=== PATIENT | male | born 2000 | race Caucasian/White ===

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

== ENCOUNTER 2020-08-13 16:23 | Emergency (ER) | payer MEDICAID ==
[2020-08-13 16:31] VITALS: BP 104/68
[2020-08-13] MEDS ORDERED: BUFFERED LIDOCAINE 10 ML SYRINGE SUBQ STA (16:44)
--- NOTE | 2020-08-13 16:45 | ED Physician Documentation ---
PD HPI UPPER EXT INJURY - Stated complaint Stated Complaint: LT THUMB LAC - Chief complaint Chief Complaint: Laceration - History obtained from History obtained from: Patient (19-year-old gentleman with up-to-date tetanus status accidentally cut his left thumb which is his nondominant thumb with gardening kajal just prior to arrival.) Review of Systems Constitutional: reports: Reviewed and negative Eyes: reports: Reviewed and negative Ears: reports: Reviewed and negative Nose: reports: Reviewed and negative Throat: reports: Reviewed and negative Cardiac: reports: Reviewed and negative Respiratory: reports: Reviewed and negative PD PAST MEDICAL HISTORY - Past Medical History Past Medical History: No Cardiovascular: None Respiratory: None Endocrine/Autoimmune: None Psych: None Musculoskeletal: None - Past Surgical History Past Surgical History: Yes General: Colonoscopy, EGD - Present Medications Home Medications: Ambulatory Orders Medication Instructions Recorded Confirmed No Known Home Medications 08/13/20 08/13/20 - Allergies Allergies/Adverse Reactions: Allergies Allergy/AdvReac Type Severity Reaction Status Date / Time No Known Drug Allergies Allergy Verified 08/13/20 16:28 - Social History Does the pt smoke?: No Smoking Status: Never smoker Does the pt drink ETOH?: No Does the pt have substance abuse?: No - Immunizations Immunizations are current?: Yes - POLST Patient has POLST: No PD ED PE NORMAL - Vitals Vital signs reviewed: Yes - General General: Alert and oriented X 3, No acute distress - Extremities Extremities: Other (On the palmar surface of the left thumb just distal to the MCP there is a 1.5 cm shallow laceration just into subcutaneous fat without distal neurovascular compromise or evidence of tendon injury.) - Neuro Neuro: Alert and oriented X 3, Normal speech Results - Vitals Vitals: Vital Signs - 24 hr 08/13/20 16:29 Temperature 36.8 C Heart Rate 60 Respiratory 16 Rate Blood Pressure 104/68 O2 Saturation 100 Oxygen O2 Source Room air Procedures - Laceration (location) L thumb Length in cm: 1.5 Wound type: Linear, Into subcut fat Neurovascular status: Sensory intact, Motor intact, Vascular intact Anesthesia: Lidocaine 1%, With bicarb Wound preparation: Hibiclens, Irrigated copiously NS Skin layer closure: Nylon, Interrupted, Size #-0 - enter number (4-0), Sutures - enter # (3) Other: Patient tolerated well, No complications, Neurovascular intact, Tetanus UTD Departure - Departure Disposition: 01 Home, Self Care Clinical Impression: Laceration Condition: Good Record reviewed to determine appropriate education?: Yes Instructions: ED Laceration Hand Comments: Come back for any signs of infection which would include: Redness, swelling, drainage, increased pain, or fevers. You can wash it soap and water. Keep it covered and moist with bacitracin ointment which is available over the counter; avoid neosporin. Follow-up with your physician in 10-14 days for suture removal.
== END 2020-08-13 17:02 | disposition home or self-care (01) ==
LOC: ED 16:23
DX: S61.012A Laceration without foreign body of left thumb without damage to nail, initial encounter (principal); W27.1XXA Contact with garden tool, initial encounter; Y93.H2 Activity, gardening and landscaping
CPT/HCPCS: 12001; 99281; 99282

== ENCOUNTER 2022-05-16 10:26 | Emergency (ER) | payer MEDICAID ==
[2022-05-16 10:35] VITALS: BP 121/69
--- NOTE | 2022-05-16 11:21 | XRAY Report ---
PROCEDURE: Wrist 4 View RT INDICATIONS: Trauma TECHNIQUE: 4 views of the wrist were acquired. COMPARISON: None. FINDINGS: Bones: No fractures or dislocations. No suspicious bony lesions. Scaphoid view: Intact scaphoid. Soft tissues: No suspicious soft tissue calcifications. IMPRESSION: No acute finding. Reviewed by: Geovanny Hernández MD on 05/16/2022 11:20 AM [facility] Approved by: Geovanny Hernández MD on 05/16/2022 11:20 AM [facility] Station ID: [id number]
--- NOTE | 2022-05-16 12:49 | ED Physician Documentation ---
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 Pain is near the distal radius and worse with any range of motion. He is never had this before. Review of Systems Constitutional: reports: Reviewed and negative Cardiac: reports: Reviewed and negative Respiratory: reports: Reviewed and negative PD PAST MEDICAL HISTORY - Past Medical History Past Medical History: No Cardiovascular: None Respiratory: None Endocrine/Autoimmune: None Psych: None Musculoskeletal: None - Past Surgical History Past Surgical History: Yes General: Colonoscopy, EGD - Present Medications Home Medications: Ambulatory Orders Medication Instructions Recorded Confirmed Ibuprofen [Motrin] 600 mg PO Q6H PRN #30 tab 05/16/22 - Allergies Allergies/Adverse Reactions: Allergies Allergy/AdvReac Type Severity Reaction Status Date / Time No Known Drug Allergies Allergy Verified 05/16/22 10:35 - Social History Does the pt smoke?: No Smoking Status: Never smoker Does the pt drink ETOH?: No Does the pt have substance abuse?: Yes Substance Use and Type: Marijuana, CBD oil / Products - Immunizations Immunizations are current?: Yes - POLST Patient has POLST: No PD ED PE NORMAL - Vitals Vital signs reviewed: Yes - General General: Alert and oriented X 3, No acute distress - Extremities Extremities: Other (Mild tenderness of the distal radius kind of laterally with some swelling there. Flexion and extension as well as forced inversion of the wrist is painful. No tenderness over the scaphoid. No elbow tenderness.) - Neuro Neuro: Alert and oriented X 3, Normal speech Results - Vitals Vitals: Vital Signs - 24 hr 05/16/22 10:33 Temperature 36.0 C L Heart Rate 63 Respiratory 16 Rate Blood Pressure 121/69 O2 Saturation 100 Oxygen O2 Source Room air - Rads (name of study) 4 view x-ray of the right wrist is unremarkable. Radiology: Final report received, EMP read indepedently PD Medical Decision Making - ED course ED course: 21-year-old right-handed gentleman presents with a tendinitis of the right wrist and is placed in a Velcro thumb spica splint and advised on relative rest and NSAIDs as well as follow-up. Departure - Departure Disposition: 01 Home, Self Care Clinical Impression: Right wrist tendonitis Condition: Good Record reviewed to determine appropriate education?: Yes Instructions: ED Sprain Wrist Prescriptions: Ibuprofen [Motrin] 600 mg PO Q6H PRN #30 tab PRN Reason: Pain Comments: Wear the splint when active. You do not need to wear it at rest or while showering bathing etc. Follow-up with your doctor in a week. Return for new or worsening symptoms. Forms: Activity restrictions
== END 2022-05-16 12:52 | disposition home or self-care (01) ==
LOC: ED 10:26
DX: M77.8 Other enthesopathies, not elsewhere classified (principal)
CPT/HCPCS: 99282; 99283

== ENCOUNTER 2022-09-29 14:58 | Emergency (ER) | payer MEDICAID ==
--- OUTSIDE RECORDS SUMMARY | 2022-09-29 15:41 | EXTERNAL MEDICAL SUMMARY RPT | Continuity of Care Document ---
Author Name Unknown Address [address] [place] [id number] Phone Organization [facility] Address [address] [place] [phone] Phone Results/Labs test date author facility value unit interpretation Result panel 1 (unknown) (no date) (unknown) (unknown) (no value) (units unknown) (unknown) (unknown) (no date) (unknown) (unknown) <Electronicall y signed by Syed Zelaya MD> (units unknown) (unknown) (unknown) (no date) (unknown) (unknown) [id number] (units unknown) (unknown) (unknown) (no date) (unknown) (unknown) 06/25/22 (units unknown) (unknown) (unknown) (no date) (unknown) (unknown) 07/07/22 0154 (units unknown) (unknown) (unknown) (no date) (unknown) (unknown) 100 mg PO BID Qty: 20 0RF (units unknown) (unknown) (unknown) (no date) (unknown) (unknown) 10:13 (units unknown) (unknown) (unknown) (no date) (unknown) (unknown) Able to expres s small amount of pus and sent for culture. Patient does agree (units unknown) (unknown) (unknown) (no date) (unknown) (unknown) Abscess I/D (units unknown) (unknown) (unknown) (no date) (unknown) (unknown) Abscess of ski n or subcutaneous tissue (units unknown) (unknown) (unknown) (no date) (unknown) (unknown) Activity Restrictions/Addit ional Instructions: (units unknown) (unknown) (unknown) (no date) (unknown) (unknown) Age/Sex: 21 / M (uni ts unknown) (unknown) (unknown) (no date) (unknown) (unknown) Allergies (units unknown) (unknown) (unknown) (no date) (unknown) (unknown) Allergy/AdvRea c Type Severity Reaction Status Date / Time (units unknown) (unknown) (unknown) (no date) (unknown) (unknown) Amount of anesthesia used (mL): 2 (units unknown) (unknown) (unknown) (no date) (unknown) (unknown) Amount of flui d expressed (mL): 0.5 (units unknown) (unknown) (unknown) (no date) (unknown) (unknown) Bacitracin (Bacitracin Oint 0.9 Gm Pckt) 1 applic TOP NOW ONE (units unknown) (unknown) (unknown) (no date) (unknown) (unknown) Blood Pressure 123/70 06/25/22 10:13 (units unknown) (unknown) (unknown) (no date) (unknown) (unknown) Blood Pressure 123/70 (units unknown) (unknown) (unknown) (no date) (unknown) (unknown) CARDIOVASCULAR : negative chest pain, palpitations (units unknown) (unknown) (unknown) (no date) (unknown) (unknown) CC: Left finge r swelling and drainage (units unknown) (unknown) (unknown) (no date) (unknown) (unknown) Chief complain t: Skin/Abscess/Forei gn Body (units unknown) (unknown) (unknown) (no date) (unknown) (unknown) Clinical Impression: (units unknown) (unknown) (unknown) (no date) (unknown) (unknown) Complicating co-morbidities: None (units unknown) (unknown) (unknown) (no date) (unknown) (unknown) Complications: other (None) (units unknown) (unknown) (unknown) (no date) (unknown) (unknown) Course (units unknown) (unknown) (unknown) (no date) (unknown) (unknown) : 1 Acct:[id number] (units unknown) (unknown) (unknown) (no date) (unknown) (unknown) Data collected from: Patient (units unknown) (unknown) (unknown) (no date) (unknown) (unknown) Date of Servic e: 06/25/22 (units unknown) (unknown) (unknown) (no date) (unknown) (unknown) Departure (units unknown) (unknown) (unknown) (no date) (unknown) (unknown) Diagnosis: Fin bushra abscess (units unknown) (unknown) (unknown) (no date) (unknown) (unknown) Differential considered: Includes but not limited to abscess/tenosynovi tis (units unknown) (unknown) (unknown) (no date) (unknown) (unknown) Discharge Plan (unit s unknown) (unknown) (unknown) (no date) (unknown) (unknown) Discontinued Medications (units unknown) (unknown) (unknown) (no date) (unknown) (unknown) Discussion: Appropriate for discharge home. Exam is reassuring. Wound culture (units unknown) (unknown) (unknown) (no date) (unknown) (unknown) Documented By: RLS ( units unknown) (unknown) (unknown) (no date) (unknown) (unknown) ER Physician: Syed Zelaya MD (units unknown) (unknown) (unknown) (no date) (unknown) (unknown) EXTREMITIES: N o gross deformities. Examination left middle finger. Able to (units unknown) (unknown) (unknown) (no date) (unknown) (unknown) Emergency Report (un its unknown) (unknown) (unknown) (no date) (unknown) (unknown) Exam Narrative: (uni ts unknown) (unknown) (unknown) (no date) (unknown) (unknown) Exam documente d above, pertinent findings include: Drainage from wound (units unknown) (unknown) (unknown) (no date) (unknown) (unknown) Exam (units unknown) (unknown) (unknown) (no date) (unknown) (unknown) GASTROINTESTIN AL: negative nausea, vomiting, abdominal pain (units unknown) (unknown) (unknown) (no date) (unknown) (unknown) GENERAL: in no distress, not toxic not dyspneic (units unknown) (unknown) (unknown) (no date) (unknown) (unknown) GENERAL: negat aleks chills, fatigue, malaise, fever, sweats. (units unknown) (unknown) (unknown) (no date) (unknown) (unknown) : negative dysuria, frequency, hematuria (units unknown) (unknown) (unknown) (no date) (unknown) (unknown) General (units unknown) (unknown) (unknown) (no date) (unknown) (unknown) HEAD: Normocephalic. (units unknown) (unknown) (unknown) (no date) (unknown) (unknown) HEENT: negativ e sinus pain, ear pain, sore throat (units unknown) (unknown) (unknown) (no date) (unknown) (unknown) HPI - Skin/Abscess/Forei gn Bdy (units unknown) (unknown) (unknown) (no date) (unknown) (unknown) HPI narrative: (unit s unknown) (unknown) (unknown) (no date) (unknown) (unknown) History of Pre sent Illness (units unknown) (unknown) (unknown) (no date) (unknown) (unknown) I+D #1: (units unknown) (unknown) (unknown) (no date) (unknown) (unknown) Initial Vital Signs (units unknown) (unknown) (unknown) (no date) (unknown) (unknown) Initial Vital Signs: (units unknown) (unknown) (unknown) (no date) (unknown) (unknown) Instructions: DI for Skin Abscess, DI for Incision and Drainage (units unknown) (unknown) (unknown) (no date) (unknown) (unknown) Irrigation: Yes (uni ts unknown) (unknown) (unknown) (no date) (unknown) (unknown) [address] [address] (units unknown) (unknown) (unknown) (no date) (unknown) (unknown) Last Admin: 06/25/22 11:21 Dose: 1 applic (units unknown) (unknown) (unknown) (no date) (unknown) (unknown) Limitations: n o limitations (units unknown) (unknown) (unknown) (no date) (unknown) (unknown) Local Anesthet ic: lidocaine 2% (units unknown) (unknown) (unknown) (no date) (unknown) (unknown) MDM - Skin/Abscess/Forei gn Bdy (units unknown) (unknown) (unknown) (no date) (unknown) (unknown) MDM Narrative (units unknown) (unknown) (unknown) (no date) (unknown) (unknown) MDM (units unknown) (unknown) (unknown) (no date) (unknown) (unknown) MUSCULOSKELETA L: negative muscle or bony pain (units unknown) (unknown) (unknown) (no date) (unknown) (unknown) Medical Histor y (units unknown) (unknown) (unknown) (no date) (unknown) (unknown) Medical decisi on making narrative: (units unknown) (unknown) (unknown) (no date) (unknown) (unknown) Medical record s reviewed: Here 2 days ago (units unknown) (unknown) (unknown) (no date) (unknown) (unknown) Medication Instructions Recorded (units unknown) (unknown) (unknown) (no date) (unknown) (unknown) Miscellaneous, Doct MD milena [Primary Care Provider] (units unknown) (unknown) (unknown) (no date) (unknown) (unknown) Mode of arriva l: Ambulatory (units unknown) (unknown) (unknown) (no date) (unknown) (unknown) NEURO: AOx4. (units unknown) (unknown) (unknown) (no date) (unknown) (unknown) NEUROLOGIC: negative weakness, numbness (units unknown) (unknown) (unknown) (no date) (unknown) (unknown) Narrative (units unknown) (unknown) (unknown) (no date) (unknown) (unknown) Narrative: (units unknown) (unknown) (unknown) (no date) (unknown) (unknown) No Action (units unknown) (unknown) (unknown) (no date) (unknown) (unknown) No Known Drug Allergies Allergy Verified 06/25/22 10:16 (units unknown) (unknown) (unknown) (no date) (unknown) (unknown) Ordered: (units unknown) (unknown) (unknown) (no date) (unknown) (unknown) Orders (units unknown) (unknown) (unknown) (no date) (unknown) (unknown) Oxygen Deliver y Method 06/25/22 10:13 (units unknown) (unknown) (unknown) (no date) (unknown) (unknown) Oxygen Deliver y Method Room Air (units unknown) (unknown) (unknown) (no date) (unknown) (unknown) PSYCH: Not anxious, is cooperative (units unknown) (unknown) (unknown) (no date) (unknown) (unknown) Packing used?: none (units unknown) (unknown) (unknown) (no date) (unknown) (unknown) Patient Disposition: Home (units unknown) (unknown) (unknown) (no date) (unknown) (unknown) Patient History (uni ts unknown) (unknown) (unknown) (no date) (unknown) (unknown) Patient seen h ere 2 days ago and treated for left finger cellulitis. At that (units unknown) (unknown) (unknown) (no date) (unknown) (unknown) Patient: Luis A Padilla MR#: [id number] (units unknown) (unknown) (unknown) (no date) (unknown) (unknown) Please continu e your antibiotic course and be sure to complete all of the (units unknown) (unknown) (unknown) (no date) (unknown) (unknown) Prescriptions: (unit s unknown) (unknown) (unknown) (no date) (unknown) (unknown) Previous Rx's (units unknown) (unknown) (unknown) (no date) (unknown) (unknown) Procedures (units unknown) (unknown) (unknown) (no date) (unknown) (unknown) Pulse Oximetry 100 06/25/22 10:13 (units unknown) (unknown) (unknown) (no date) (unknown) (unknown) Pulse Oximetry 100 ( units unknown) (unknown) (unknown) (no date) (unknown) (unknown) Pulse Rate 67 06/25/22 10:13 (units unknown) (unknown) (unknown) (no date) (unknown) (unknown) Pulse Rate 67 (units unknown) (unknown) (unknown) (no date) (unknown) (unknown) RESPIRATORY: negative dyspnea, cough (units unknown) (unknown) (unknown) (no date) (unknown) (unknown) ROS Unobtainab le: All systems reviewed + are unremarkable except as noted in HPI (units unknown) (unknown) (unknown) (no date) (unknown) (unknown) Re-evaluations : Bleeding controlled at time of discharge. (units unknown) (unknown) (unknown) (no date) (unknown) (unknown) Referrals: (units unknown) (unknown) (unknown) (no date) (unknown) (unknown) Related Data (units unknown) (unknown) (unknown) (no date) (unknown) (unknown) Respiratory Ra te 16 06/25/22 10:13 (units unknown) (unknown) (unknown) (no date) (unknown) (unknown) Respiratory Ra te 16 (units unknown) (unknown) (unknown) (no date) (unknown) (unknown) Review of Systems (u nits unknown) (unknown) (unknown) (no date) (unknown) (unknown) SKIN: Warm and dry ( units unknown) (unknown) (unknown) (no date) (unknown) (unknown) SKIN: negative rash, skin lesions, positive skin injury (units unknown) (unknown) (unknown) (no date) (unknown) (unknown) Side (if applicable): left (units unknown) (unknown) (unknown) (no date) (unknown) (unknown) Signed By: (units unknown) (unknown) (unknown) (no date) (unknown) (unknown) Sinusitis (units unknown) (unknown) (unknown) (no date) (unknown) (unknown) Site: other (L eft middle finger) (units unknown) (unknown) (unknown) (no date) (unknown) (unknown) Smoking Status : Current every day smoker (units unknown) (unknown) (unknown) (no date) (unknown) (unknown) Social History (units unknown) (unknown) (unknown) (no date) (unknown) (unknown) Source: patient (uni ts unknown) (unknown) (unknown) (no date) (unknown) (unknown) Stand Alone Fo aysha: Patient Portal/API, Work Release Note (units unknown) (unknown) (unknown) (no date) (unknown) (unknown) Stated complai nt: Infection in finger (units unknown) (unknown) (unknown) (no date) (unknown) (unknown) Stop: 06/25/22 11:07 (units unknown) (unknown) (unknown) (no date) (unknown) (unknown) Substance Use Type: does not use (units unknown) (unknown) (unknown) (no date) (unknown) (unknown) Technique: inc ised with #11 blade (units unknown) (unknown) (unknown) (no date) (unknown) (unknown) Temperature 98 .3 F 06/25/22 10:13 (units unknown) (unknown) (unknown) (no date) (unknown) (unknown) Temperature 98.3 F ( units unknown) (unknown) (unknown) (no date) (unknown) (unknown) Time Seen by Provider: 06/25/22 10:47 (units unknown) (unknown) (unknown) (no date) (unknown) (unknown) Time of proced ure: 11:14 (units unknown) (unknown) (unknown) (no date) (unknown) (unknown) Treatments: Incision and drainage (units unknown) (unknown) (unknown) (no date) (unknown) (unknown) Vital Signs - 8 hr ( units unknown) (unknown) (unknown) (no date) (unknown) (unknown) Vital Signs (units unknown) (unknown) (unknown) (no date) (unknown) (unknown) Vital signs: (units unknown) (unknown) (unknown) (no date) (unknown) (unknown) able to flex a nd extend fully at MCP PIP and DP joints. Return precautions (units unknown) (unknown) (unknown) (no date) (unknown) (unknown) alcohol intake frequency: holidays/special occasions only (units unknown) (unknown) (unknown) (no date) (unknown) (unknown) and below (units unknown) (unknown) (unknown) (no date) (unknown) (unknown) desires discha rge home. (units unknown) (unknown) (unknown) (no date) (unknown) (unknown) doxycycline hyclate 100 mg tablet 100 mg PO BID #20 tabs 06/22/22 (units unknown) (unknown) (unknown) (no date) (unknown) (unknown) doxycycline hyclate 100 mg tablet (units unknown) (unknown) (unknown) (no date) (unknown) (unknown) family doctor. Call [phone] (units unknown) (unknown) (unknown) (no date) (unknown) (unknown) for drainage. Careful evaluation not to injure tendon below. Patient still (units unknown) (unknown) (unknown) (no date) (unknown) (unknown) for incision a nd drainage. (units unknown) (unknown) (unknown) (no date) (unknown) (unknown) fully flex and extend at the MCP PIP and DP joints. At this time clinically not (units unknown) (unknown) (unknown) (no date) (unknown) (unknown) joint of the l eft 3rd finger. No numbness or tingling. (units unknown) (unknown) (unknown) (no date) (unknown) (unknown) medication. Ch norman dressing daily with warm soap and water and apply thin layer (units unknown) (unknown) (unknown) (no date) (unknown) (unknown) number as well . Call provided primary care referral phone number to establish (units unknown) (unknown) (unknown) (no date) (unknown) (unknown) of topical antibiotic. Work note has been provided for you. Primary clinic (units unknown) (unknown) (unknown) (no date) (unknown) (unknown) paronychia/felon (un its unknown) (unknown) (unknown) (no date) (unknown) (unknown) reviewed tamia preston. Work note provided. Primary care clinic provided. Patient (units unknown) (unknown) (unknown) (no date) (unknown) (unknown) sent. Patient already on doxycycline. A plus pattern incision drainage used (units unknown) (unknown) (unknown) (no date) (unknown) (unknown) tenosynovitis. There is callused skin at the volar aspect of the D IP joint. (units unknown) (unknown) (unknown) (no date) (unknown) (unknown) that he pushed out of the wound. Has a wound to the volar aspect of the D IP (units unknown) (unknown) (unknown) (no date) (unknown) (unknown) time no draina ble abscess. Patient states this morning had a lot of discharge (units unknown) (unknown)
--- NOTE | 2022-09-29 16:15 | XRAY Report ---
PROCEDURE: Shoulder 3 View RT INDICATIONS: pain TECHNIQUE: 3 views of the shoulder were acquired. COMPARISON: None. FINDINGS: Bones: No displaced fracture. No dislocation. Soft tissues: No suspicious calcifications. IMPRESSION: No acute radiographic abnormality. If there is high concern for further derangement, consider MRI maury luation. Reviewed by: Gilbert Oliveros MD on 09/29/2022 4:14 PM PDT Approved by: Gilbert Oliveros MD on 09/29/2022 4:14 PM PDT Station ID: [id number]
--- NOTE | 2022-09-29 16:26 | ED Physician Documentation ---
PD HPI UPPER EXT INJURY - Stated complaint Stated Complaint: RT SHOULDER PX - Chief complaint Chief Complaint: Ext Problem - History obtained from History obtained from: Patient - Additonal information Additional information: Patient is a 22-year-old male with no significant prior medical history presenting for evaluation of right shoulder pain since yesterday morning. Patient states that he was throwing a football for 2 hours on Mother's Day which is not something that he normally does. 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 He denies any falls or other injuries. He denies prior injury to this area. The pain does not radiate. He has taken Tylenol for the pain.Patient denies any chest pain, shortness of breath, headache. No numbness or tingling.Patient denies pain at rest but feels it with certain movements. Review of Systems Constitutional: denies: Fever Cardiac: denies: Chest pain / pressure Respiratory: denies: Dyspnea Musculoskeletal: reports: Joint pain Neurologic: denies: Headache PD PAST MEDICAL HISTORY - Past Medical History Cardiovascular: None Respiratory: None Endocrine/Autoimmune: None Psych: None Musculoskeletal: None - Past Surgical History Past Surgical History: Yes General: Colonoscopy, EGD - Present Medications Home Medications: Ambulatory Orders Medication Instructions Recorded Confirmed No Known Home Medications 09/29/22 09/29/22 - Allergies Allergies/Adverse Reactions: Allergies Allergy/AdvReac Type Severity Reaction Status Date / Time No Known Drug Allergies Allergy Verified 05/16/22 10:35 - Social History Does the pt smoke?: No Smoking Status: Never smoker Does the pt drink ETOH?: No Does the pt have substance abuse?: Yes - Immunizations Immunizations are current?: Yes - POLST Patient has POLST: No PD ED PE NORMAL - General General: Alert and oriented X 3, No acute distress, Well developed/nourished - HEENT HEENT: Atraumatic - Neck Neck: Supple, no meningeal sign - Cardiac Cardiac: Strong equal pulses - Respiratory Respiratory: No respiratory distress - Derm Derm: Warm and dry - Extremities Extremities: No deformity, No tenderness to palpate, Normal ROM s pain, No edema - Neuro Neuro: Alert and oriented X 3, No motor deficit, No sensory deficit, Normal speech Results - Vitals Vitals: Vital Signs - 24 hr 09/29/22 09/29/22 15:06 16:46 Temperature 36.3 C L Heart Rate 58 L 78 Respiratory 16 16 Rate Blood Pressure 104/53 L 113/56 L O2 Saturation 98 100 Oxygen O2 Source Room air PD Medical Decision Making - ED course Complexity details: reviewed results, re-evaluated patient, d/w patient ED course: Presenting for evaluation of right shoulder pain in the setting of throwing a football around for several hours 2 days ago. Patient has no other known trauma or injury. No deformities noted on exam. Neurovascularly intact. No signs of a septic joint. An x-ray was obtained which I reviewed and see no fracture or dislocation. Patient likely has a strain injury from Repetitive use. Discussed continued supportive care as well as need for close follow-up if symptoms are not improving. Departure - Departure Disposition: 01 Home, Self Care Clinical Impression: Right shoulder strain Condition: Stable Instructions: ED Sprain Shoulder Comments: Your x-ray does not show a broken or out of place bone. You likely have sprained the shoulder joint from repetitive use. Recommend ice, anti- inflammatories, lidocaine patches for the next several days and would expect this to get better. If anything gets worse please consider return to the emergency department or follow-up with your PCP or walk-in clinic. Forms: Activity restrictions Discharge Date/Time: 09/29/22 16:47
[2022-09-29] MEDS: LIDOCAINE PATCH 5% TOP STA (16:30)
[2022-09-29 16:48] VITALS: BP 113/56
== END 2022-09-29 16:47 | disposition home or self-care (01) ==
LOC: ED 14:58
DX: S46.811A Strain of other muscles, fascia and tendons at shoulder and upper arm level, right arm, initial encounter (principal); X58.XXXA Exposure to other specified factors, initial encounter
CPT/HCPCS: 73030; 99283; A9270